=== PATIENT | male | born 1950 | race Caucasian/White ===

== ENCOUNTER 2022-05-25 10:23 | Outpatient (CLI) | payer OTHER | END 2022-05-25 10:29 | disposition home or self-care (01) | LOC: LAB 10:23 | PROVIDERS: ATTEND Urology | DX: R97.20 Elevated prostate specific antigen [PSA] (principal) ==

== ENCOUNTER 2022-06-09 07:20 | Outpatient (CLI) | payer OTHER | END 2022-06-09 07:25 | disposition home or self-care (01) | LOC: SONOGRAMA 07:20 | PROVIDERS: ATTEND Urology | DX: R97.20 Elevated prostate specific antigen [PSA] (principal) ==

== ENCOUNTER 2023-08-21 12:30 | Inpatient (IN) | payer OTHER ==
[~2023-08-21] VITALS: Ht 172.7 cm; Wt 0.5 kg
[2023-08-21] MEDS ORDERED: COZAAR100 MG PO (15:00)
[2023-08-21] MEDS ORDERED: TOPROL XL25 M1 PO (15:00)
[2023-08-21] MEDS ORDERED: ZYLOPRIM100 M1 PO (15:01)
[2023-09-01 08:31] LABS: HEMATOCRIT 27.2 % (39.0-48.0); HEMOGLOBIN 9.3 g/dL (13-16.00); MEAN CELL VOLUME 96.1 fL (80.0-100.00); MEAN CORPUSCULAR HEMOGLOBIN 32.8 pg (27.00-32.0); MEAN CORPUSCULAR HGB CONC 34.2 g/dl (32.0-36.0); PLATELET COUNT 170 K/uL (150-450); RED BLOOD COUNT 2.83 M/uL (4.00-6.00); RED CELL DISTRIBUTION WIDTH 14.1 % (11.5-14.5)
[2023-09-01 08:39] LABS: CALCIUM 8.7 mg/dL (8.5-10.1); GFR 6.64; POTASSIUM 5.14 mEq/L (3.5-5.1)
[2023-09-01 09:36] LABS: CREATININE SERUM 8.01 mg/dL (0.70-1.30)
== END 2023-09-02 12:31 | disposition home or self-care (01) | DRG 707 ==
LOC: SURG 08-24 12:30 → SURH 08-31 05:00 → O/R 08-31 05:00 → SURH 08-31 11:00
PROVIDERS: ADMIT Urology; ATTEND Urology
PROC: 07BC4ZX Excision of Pelvis Lymphatic, Percutaneous Endoscopic Approach, Diagnostic (ICD-10-PCS; 2023-08-31)
PROC: 5A1D70Z Performance of Urinary Filtration, Intermittent, Less than 6 Hours Per Day (ICD-10-PCS; 2023-08-31)
PROC: 5A1D70Z Performance of Urinary Filtration, Intermittent, Less than 6 Hours Per Day (ICD-10-PCS; 2023-08-31)
PROC: 0VT04ZZ Resection of Prostate, Percutaneous Endoscopic Approach (ICD-10-PCS; principal; 2023-08-31 07:00)
DX: C61 Malignant neoplasm of prostate (principal); N18.6 End stage renal disease; Z99.2 Dependence on renal dialysis